=== PATIENT | female | born 1995 | race African-American/Black ===

== ENCOUNTER 2016-05-15 09:24 | Emergency (ER) | payer MEDICAID ==
[~2016-05-15] VITALS: Ht 147.3 cm; Wt 45.4 kg
[2016-05-15 10:44] VITALS: BP 118/78
== END 2016-05-15 11:12 | disposition home or self-care (01) ==
LOC: EDUNIT# 09:24 → ER 10:09
DX: K94.03 Colostomy malfunction (principal); F12.10 Cannabis abuse, uncomplicated; Z89.612 Acquired absence of left leg above knee; Z87.442 Personal history of urinary calculi; Z87.440 Personal history of urinary (tract) infections; Z91.040 Latex allergy status; Z98.890 Other specified postprocedural states

== ENCOUNTER 2017-03-05 14:22 | Emergency (ER) | payer SELFPAY ==
[~2017-03-05] VITALS: Ht 149.9 cm; Wt 36.3 kg
[2017-03-05 14:42] VITALS: BP 101/51
[2017-03-05 18:34] LABS: Basophils # (auto) 0.1 uL; Basophils % (auto) 0.6 % (0.0-2.0); Eosinophils # (auto) 0.1 uL; Eosinophils % (auto) 1.2 % (0.0-7.0); Hematocrit 37.7 % (36.0-46.0); Hemoglobin 12.2 g/dL (12.2-16.2); Lymphocytes # (auto) 1.7 uL; Lymphocytes % (auto) 17.5 % (10.0-50.0); Mean Corpuscular Hemoglobin 30.2 pg (28.0-32.0); Mean Corpuscular Hgb Conc. 32.5 g/dL (32.0-36.0); Mean Platelet Volume 9.1 fL (6.9-10.8); Monocytes # (auto) 0.5 uL; Monocytes % (auto) 5.1 % (0.0-12.0); Neutrophils # (auto) 7.5 uL; Neutrophils % (auto) 75.6 % (37.0-80.0); Platelet Count (auto) 259 10^3/uL (140-450); White Blood Cell 9.9 10^3/uL (4.4-10.8)
[2017-03-05 18:53] LABS: Albumin 4.1 g/dL (3.4-5.0); BUN/Creatinine Ratio 15.3; Bilirubin, Total 0.4 mg/dL (0.2-1.0); Calcium 8.3 mg/dL (8.5-10.1); Potassium 3.2 mmol/L (3.5-5.1); Total Protein 8.7 g/dL (6.4-8.2)
[2017-03-05 19:43] LABS: Amylase 275 U/L (25-115)
== END 2017-03-05 22:42 | disposition home or self-care (01) ==
LOC: ER 14:22
DX: K85.90 Acute pancreatitis without necrosis or infection, unspecified (principal); Z91.040 Latex allergy status; Z87.442 Personal history of urinary calculi; Z87.440 Personal history of urinary (tract) infections
CPT/HCPCS: 36415; 80053; 82150; 83690; 85025

== ENCOUNTER 2017-08-14 00:30 | Emergency (ER) | payer MEDICAID ==
[~2017-08-14] VITALS: Ht 149.9 cm; Wt 36.3 kg
[2017-08-14 01:17] LABS: Basophils # (auto) 0 uL; Basophils % (auto) 0.5 % (0.0-2.0); Eosinophils # (auto) 0.3 uL; Eosinophils % (auto) 3.5 % (0.0-7.0); Hematocrit 33.7 % (36.0-46.0); Lymphocytes # (auto) 2.5 uL; Lymphocytes % (auto) 28.3 % (10.0-50.0); Mean Corpuscular Hemoglobin 30.5 pg (28.0-32.0); Mean Corpuscular Hgb Conc. 32.8 g/dL (32.0-36.0); Monocytes # (auto) 0.5 uL; Monocytes % (auto) 5.6 % (0.0-12.0); Neutrophils # (auto) 5.5 uL; Neutrophils % (auto) 62.1 % (37.0-80.0); Platelet Count (auto) 339 10^3/uL (140-450); Red Blood Cells 3.62 10^6/uL (4.0-5.20); Red Cell Distribution Width 14.3 % (11.8-14.3); White Blood Cell 8.8 10^3/uL (4.4-10.8)
[2017-08-14 01:41] LABS: Albumin 3.2 g/dL (3.4-5.0); BUN/Creatinine Ratio 12.1; Calcium 8.2 mg/dL (8.5-10.1); Potassium 3.7 mmol/L (3.5-5.1)
[2017-08-14 01:43] LABS: Bilirubin, Total 0.2 mg/dL (0.2-1.0); Total Protein 7.1 g/dL (6.4-8.2)
[2017-08-14 01:48] LABS: Alcohol, Urine < 3.0 mg/dL (0-5); Amphetamine Screen, Urine NEGATIVE (NEGATIVE); Barbiturate Scree,Urine NEGATIVE (NEGATIVE); Benzodiazephine Screen, Urine NEGATIVE (NEGATIVE); Cannabinoid Screen, Urine POSITIVE (NEGATIVE); Cocaine Screen, Urine NEGATIVE (NEGATIVE); Opiate Scree,Urine NEGATIVE (NEGATIVE); Phencyclidine Screen, Urine NEGATIVE (NEGATIVE)
[2017-08-14 01:54] LABS: Urine Bacteria MANY /hpf (None Seen); Urine Blood 3+ /uL (Negative); Urine Mucus FEW (None Seen); Urine Specific Gravity 1.016 (1.001-1.035); Urine WBC 163 /hpf (0 - 5)
[2017-08-14 06:11] VITALS: BP 108/63
[2017-08-14] MEDS ORDERED: cefTRIAXone W LIDOCAINE 1 GM IM IM ONE (07:30)
[2017-08-14] MEDS ORDERED: HYDROcodone-ACET 5/325MG TAB PO ONE (08:00)
== END 2017-08-14 08:52 | disposition home or self-care (01) ==
LOC: ER 00:32
DX: N39.0 Urinary tract infection, site not specified (principal); R53.1 Weakness; Z91.040 Latex allergy status; Z87.440 Personal history of urinary (tract) infections
CPT/HCPCS: 36415; 74176; 80053; 80307; 81001; 81025; 82150; 83690; 85025; J0696

== ENCOUNTER 2018-02-19 23:26 | Inpatient (IN) | payer MEDICAID ==
[~2018-02-19] VITALS: Ht 149.9 cm; Wt 54.7 kg
[2018-02-20 00:54] LABS: Basophils # (auto) 0 uL; Basophils % (auto) 0.4 % (0.0-2.0); Eosinophils # (auto) 0.4 uL; Eosinophils % (auto) 4.4 % (0.0-7.0); Hematocrit 34.2 % (36.0-46.0); Hemoglobin 11.2 g/dL (12.2-16.2); Lymphocytes # (auto) 3.9 uL; Mean Corpuscular Hemoglobin 30.7 pg (28.0-32.0); Mean Corpuscular Hgb Conc. 32.8 g/dL (32.0-36.0); Mean Corpuscular Volume 93.7 fL (80.0-100.0); Monocytes # (auto) 0.7 uL; Monocytes % (auto) 6.5 % (0.0-12.0); Neutrophils % (auto) 49.7 % (37.0-80.0); Nucleated Red Blood Cells % 0.1 %; Platelet Count (auto) 206 10^3/uL (140-450); Red Blood Cells 3.65 10^6/uL (4.0-5.20); Red Cell Distribution Width 14.4 % (11.8-14.3); White Blood Cell 10.1 10^3/uL (4.4-10.8)
[2018-02-20 01:07] LABS: Albumin 3.1 g/dL (3.4-5.0); BUN/Creatinine Ratio 14.2; Calcium 8.5 mg/dL (8.5-10.1); Potassium 3.6 mmol/L (3.5-5.1)
[2018-02-20 01:08] LABS: Bilirubin, Total 0.2 mg/dL (0.2-1.0); Total Protein 7.4 g/dL (6.4-8.2)
[2018-02-20 05:32] LABS: Urine Amorphous Crystal FEW /hpf (None Seen); Urine Bacteria FEW /hpf (None Seen); Urine Blood Negative /uL (Negative); Urine Mucus FEW (None Seen); Urine Specific Gravity 1.009 (1.001-1.035); Urine WBC 26 /hpf (0 - 5)
[2018-02-20] MEDS ORDERED: SODIUM CHLORIDE 0.9% 1,000 ML IV ONE (07:47)
[2018-02-20] MEDS ORDERED: MORPHINE SULFATE 4 MG/ML SYR/VIAL IV ONE (08:00)
[2018-02-20] MEDS ORDERED: VANCOMYCIN 1GM/250ML 250 ML IV ONE (08:00)
[2018-02-20] MEDS ORDERED: KETOROLAC TROMETH 30 MG/ML 1ML VIAL IV ONE (08:00)
[2018-02-20] MEDS ORDERED: IOHEXOL 300 MG/ML 100ML BOTTLE IJ ONE (08:03)
[2018-02-20] MEDS: PROMETHAZINE HCL 25 MG/ML 1ML IV PRN ×2 (08:14→18:02)
[2018-02-20 09:17] LABS: Magnesium 2.1 mg/dL (1.6-2.6)
[2018-02-20] MEDS ORDERED: PANTOPRAZOLE 40 MG/10 ML VIAL IV ONE (13:30)
[2018-02-20] MEDS ORDERED: PIPERACILLIN-TAZOB 3.375GM 100 ML IV ONE (13:30)
[2018-02-20] MEDS ORDERED: LORazepam 2MG/ML-1ML VIAL IV PRN (13:30)
[2018-02-20] MEDS ORDERED: MORPHINE SULFATE 4 MG/ML SYR/VIAL IV PRN (13:30)
[2018-02-20] MEDS ORDERED: NITROGLYCERIN 0.4 MG SL TAB SL PRN (13:30)
[2018-02-20] MEDS: MORPHINE SULFATE 4 MG/ML SYR/VIAL IV PRN ×4 (13:54→22:12)
[2018-02-20] MEDS: SODIUM CHLORIDE 0.9% 1,000 ML IV SCH ×2 (14:26→22:52)
[2018-02-20 16:56] VITALS: BP 85/44
[2018-02-20 18:43] VITALS: BP 85/44
[2018-02-20] MEDS: PIPERACILLIN-TAZOB 3.375GM 100 ML IV SCH (19:41)
[2018-02-20] MEDS ORDERED: DIVA250T51 PO (20:04)
[2018-02-20] MEDS ORDERED: LAMO25TA2 PO (20:04)
[2018-02-20] MEDS ORDERED: QUET25TA37 PO (20:04)
[2018-02-20 22:02] VITALS: BP 131/69
[2018-02-20] MEDS: lamoTRIgine 25 MG TAB PO SCH (22:10)
[2018-02-20] MEDS: QUEtiapine FUMARATE 25 MG TAB PO SCH (22:10)
[2018-02-21] MEDS: PIPERACILLIN-TAZOB 3.375GM 100 ML IV SCH ×2 (00:08→05:18)
[2018-02-21] MEDS: MORPHINE SULFATE 4 MG/ML SYR/VIAL IV PRN ×2 (03:53→10:01)
[2018-02-21 05:15] VITALS: BP 85/45
[2018-02-21 08:01] LABS: Basophils # (auto) 0.1 uL; Basophils % (auto) 0.6 % (0.0-2.0); Eosinophils # (auto) 0.5 uL; Eosinophils % (auto) 5.7 % (0.0-7.0); Hematocrit 33.4 % (36.0-46.0); Hemoglobin 10.8 g/dL (12.2-16.2); Lymphocytes # (auto) 3.8 uL; Lymphocytes % (auto) 42.6 % (10.0-50.0); Mean Corpuscular Hemoglobin 30.8 pg (28.0-32.0); Mean Corpuscular Hgb Conc. 32.4 g/dL (32.0-36.0); Monocytes # (auto) 0.5 uL; Monocytes % (auto) 5.2 % (0.0-12.0); Neutrophils # (auto) 4.1 uL; Neutrophils % (auto) 45.9 % (37.0-80.0); Nucleated Red Blood Cells % 0.1 %; Platelet Count (auto) 165 10^3/uL (140-450); Red Blood Cells 3.51 10^6/uL (4.0-5.20); Red Cell Distribution Width 14.7 % (11.8-14.3); White Blood Cell 8.9 10^3/uL (4.4-10.8)
[2018-02-21 08:16] LABS: Chloride 119 mmol/L (98-107); Potassium 3.7 mmol/L (3.5-5.1); Sodium 143 mmol/L (136-145)
[2018-02-21 08:22] LABS: Alanine Aminotransferase 12 U/L (13-56); Albumin 2.4 g/dL (3.4-5.0); Anion Gap 10 (5-15); Aspartate Aminotransferase 11 U/L (15-37); BUN/Creatinine Ratio 8.9; Blood Urea Nitrogen 11 mg/dL (7-18); Carbon Dioxide 14 mmol/L (21-32); GFR African American 70 mL/min; GFR Non-African American 58 mL/min; Glucose 74 mg/dL (74-106)
[2018-02-21 08:25] LABS: Alkaline Phosphatase 62 U/L (45-117); Bilirubin, Total 0.2 mg/dL (0.2-1.0); Total Protein 6.2 g/dL (6.4-8.2)
[2018-02-21] MEDS ORDERED: GASTROGRAFIN 120 ML SOL ONE (08:46)
[2018-02-21 09:00] VITALS: BP 93/56
[2018-02-21] MEDS: PANTOPRAZOLE 40 MG/10 ML VIAL IV SCH (09:47)
[2018-02-21] MEDS: lamoTRIgine 25 MG TAB PO SCH ×2 (09:47→20:24)
[2018-02-21] MEDS: SODIUM CHLORIDE 0.9% 1,000 ML IV SCH ×2 (10:02→20:24)
[2018-02-21] MEDS ORDERED: HYDROcodone-ACET 5/325MG TAB PO PRN (12:00)
[2018-02-21] MEDS ORDERED: ALBUMIN 25% 100 ML IV ONE (12:45)
[2018-02-21] MEDS: AMPICILLIN INJ 500 MG in SODIUM CHL 0.9% 50 ML IV SCH ×3 (12:50→23:22)
[2018-02-21 13:00] VITALS: BP 92/48
[2018-02-21] MEDS: HYDROmorphone HCL 2 MG/ML VL IV PRN ×4 (13:17→23:29)
[2018-02-21 17:00] VITALS: BP 121/74
[2018-02-21 19:32] LABS: Hematocrit 38.5 % (36.0-46.0); Hemoglobin 12.5 g/dL (12.2-16.2)
[2018-02-21] MEDS: QUEtiapine FUMARATE 25 MG TAB PO SCH (20:24)
[2018-02-21 22:00] VITALS: BP 103/50
[2018-02-22 01:10] LABS: Hematocrit 32.9 % (36.0-46.0); Hemoglobin 10.7 g/dL (12.2-16.2)
[2018-02-22 05:06] VITALS: BP 95/66
[2018-02-22] MEDS: HYDROmorphone HCL 2 MG/ML VL IV PRN ×6 (05:18→21:39)
[2018-02-22] MEDS: AMPICILLIN INJ 500 MG in SODIUM CHL 0.9% 50 ML IV SCH ×3 (05:18→17:15)
[2018-02-22] MEDS: SODIUM CHLORIDE 0.9% 1,000 ML IV SCH ×2 (05:18→12:11)
[2018-02-22 06:36] LABS: BUN/Creatinine Ratio 6.7; Potassium 4.2 mmol/L (3.5-5.1)
[2018-02-22 09:00] VITALS: BP 101/56
[2018-02-22] MEDS: PANTOPRAZOLE 40 MG/10 ML VIAL IV SCH (10:11)
[2018-02-22] MEDS: lamoTRIgine 25 MG TAB PO SCH ×2 (10:11→21:40)
[2018-02-22 13:00] VITALS: BP 98/65
[2018-02-22 16:34] VITALS: BP 104/55
[2018-02-22] MEDS: ONDANSETRON HCL 4 MG/2 ML VIAL IV PRN (18:43)
[2018-02-22] MEDS: QUEtiapine FUMARATE 25 MG TAB PO SCH (21:39)
[2018-02-22 22:00] VITALS: BP 108/67
[2018-02-23] MEDS: SODIUM CHLORIDE 0.9% 1,000 ML IV SCH ×2 (00:19→11:26)
[2018-02-23] MEDS: AMPICILLIN INJ 500 MG in SODIUM CHL 0.9% 50 ML IV SCH ×4 (00:19→18:19)
[2018-02-23] MEDS: HYDROmorphone HCL 2 MG/ML VL IV PRN ×6 (04:24→21:26)
[2018-02-23 05:00] VITALS: BP 99/52
[2018-02-23 09:08] VITALS: BP 96/45
[2018-02-23] MEDS: PANTOPRAZOLE 40 MG/10 ML VIAL IV SCH (09:51)
[2018-02-23] MEDS: lamoTRIgine 25 MG TAB PO SCH ×2 (09:52→21:31)
[2018-02-23 12:30] VITALS: BP 96/59
[2018-02-23 16:45] VITALS: BP 107/52
[2018-02-23] MEDS: QUEtiapine FUMARATE 25 MG TAB PO SCH (21:31)
[2018-02-23 22:00] VITALS: BP 93/52
[2018-02-24] MEDS: AMPICILLIN INJ 500 MG in SODIUM CHL 0.9% 50 ML IV SCH ×4 (00:23→17:56)
[2018-02-24] MEDS: HYDROmorphone HCL 2 MG/ML VL IV PRN ×8 (00:26→22:54)
[2018-02-24] MEDS: SODIUM CHLORIDE 0.9% 1,000 ML IV SCH ×3 (00:36→17:26)
[2018-02-24 05:00] VITALS: BP 100/51
[2018-02-24 08:30] VITALS: BP 143/49
[2018-02-24] MEDS: PANTOPRAZOLE 40 MG/10 ML VIAL IV SCH (09:49)
[2018-02-24] MEDS: lamoTRIgine 25 MG TAB PO SCH ×2 (09:49→22:04)
[2018-02-24] MEDS: ONDANSETRON HCL 4 MG/2 ML VIAL IV PRN (12:27)
[2018-02-24 13:02] VITALS: BP 125/80
[2018-02-24 17:04] VITALS: BP 129/73
[2018-02-24 22:00] VITALS: BP 110/55
[2018-02-24] MEDS: QUEtiapine FUMARATE 25 MG TAB PO SCH (22:04)
[2018-02-25] MEDS: AMPICILLIN INJ 500 MG in SODIUM CHL 0.9% 50 ML IV SCH ×4 (00:27→19:49)
[2018-02-25] MEDS: HYDROmorphone HCL 2 MG/ML VL IV PRN ×8 (01:53→23:37)
[2018-02-25 05:00] VITALS: BP 97/44
[2018-02-25] MEDS: SODIUM CHLORIDE 0.9% 1,000 ML IV SCH ×2 (06:10→14:10)
[2018-02-25 09:00] VITALS: BP 99/47
[2018-02-25] MEDS ORDERED: HYDROmorphone HCL 2 MG/ML VL IV PRN (09:45)
[2018-02-25] MEDS: lamoTRIgine 25 MG TAB PO SCH ×2 (10:15→22:11)
[2018-02-25] MEDS: PANTOPRAZOLE 40 MG/10 ML VIAL IV SCH (10:15)
[2018-02-25] MEDS ORDERED: LAMO25CH17 PO (10:45)
[2018-02-25] MEDS ORDERED: QUET25TA46 PO (10:45)
[2018-02-25] MEDS ORDERED: DIVA1TAB58 PO (10:45)
[2018-02-25 10:58] LABS: BUN/Creatinine Ratio 5.4; Calcium 9.1 mg/dL (8.5-10.1)
[2018-02-25 13:00] VITALS: BP 106/51
[2018-02-25 17:00] VITALS: BP 104/58
[2018-02-25 21:56] VITALS: BP 117/59
[2018-02-25] MEDS: QUEtiapine FUMARATE 25 MG TAB PO SCH (22:11)
[2018-02-26] MEDS: AMPICILLIN INJ 500 MG in SODIUM CHL 0.9% 50 ML IV SCH ×3 (00:27→11:32)
[2018-02-26] MEDS: SODIUM CHLORIDE 0.9% 1,000 ML IV SCH ×2 (00:27→09:26)
[2018-02-26] MEDS: HYDROmorphone HCL 2 MG/ML VL IV PRN ×3 (04:43→11:33)
[2018-02-26 05:00] VITALS: BP 98/50
[2018-02-26 09:00] VITALS: BP 117/68
[2018-02-26] MEDS ORDERED: AMPI500C8 PO (09:10)
[2018-02-26] MEDS: lamoTRIgine 25 MG TAB PO SCH (09:40)
[2018-02-26] MEDS: PANTOPRAZOLE 40 MG/10 ML VIAL IV SCH (09:40)
== END 2018-02-26 15:00 | disposition short-term general hospital (02) | DRG 465 ==
LOC: EDBD 23:26 → ER 23:29 → TELE 23:30 → TELE-WESTW 02-20 16:48 → WEST WING 02-21 23:58
PROVIDERS: ADMIT Internal Medicine; ATTEND Internal Medicine
DX: N21.0 Calculus in bladder (principal); Q60.0 Renal agenesis, unilateral; E44.0 Moderate protein-calorie malnutrition; K43.6 Other and unspecified ventral hernia with obstruction, without gangrene; N18.3 Chronic kidney disease, stage 3 (moderate); N39.0 Urinary tract infection, site not specified; Z87.442 Personal history of urinary calculi; F31.9 Bipolar disorder, unspecified; F17.210 Nicotine dependence, cigarettes, uncomplicated; N20.0 Calculus of kidney; B95.2 Enterococcus as the cause of diseases classified elsewhere; Z98.1 Arthrodesis status; Z91.040 Latex allergy status; Z81.8 Family history of other mental and behavioral disorders; Z87.440 Personal history of urinary (tract) infections; Z93.2 Ileostomy status; Z68.24 Body mass index [BMI] 24.0-24.9, adult
CPT/HCPCS: 36415; 71045; 74177; 74250; 80048; 80053; 81001; 81025; 82150; 83690; 83735; 84443; 85014; 85018; 85025; 87081; 87086; 87088; 87186; 96361; 96365; 96367; 96375; C9113; J1885; J2405; J2543; P9047

== ENCOUNTER 2018-08-04 22:59 | Emergency (ER) | payer MEDICAID ==
[~2018-08-04] VITALS: Ht 149.9 cm; Wt 42.2 kg
[2018-08-04 23:00] VITALS: BP 125/90
[2018-08-05 01:58] LABS: Basophils # (auto) 0.1 uL; Eosinophils # (auto) 0.3 uL; Eosinophils % (auto) 2.9 % (0.0-7.0); Hematocrit 37.2 % (36.0-46.0); Hemoglobin 12.4 g/dL (12.2-16.2); Lymphocytes # (auto) 3.1 uL; Lymphocytes % (auto) 31.6 % (10.0-50.0); Mean Corpuscular Hgb Conc. 33.3 g/dL (32.0-36.0); Mean Corpuscular Volume 90.3 fL (80.0-100.0); Monocytes # (auto) 0.7 uL; Neutrophils # (auto) 5.7 uL; Neutrophils % (auto) 57.5 % (37.0-80.0); Nucleated Red Blood Cells % 0.1 %; Platelet Count (auto) 221 10^3/uL (140-450); Red Blood Cells 4.12 10^6/uL (4.0-5.20); Red Cell Distribution Width 14.9 % (11.8-14.3); White Blood Cell 9.9 10^3/uL (4.4-10.8)
[2018-08-05 02:11] LABS: Albumin 3.7 g/dL (3.4-5.0); Calcium 8.4 mg/dL (8.5-10.1); Potassium 3.4 mmol/L (3.5-5.1)
[2018-08-05 02:16] LABS: BUN/Creatinine Ratio 10.3; Bilirubin, Total 0.1 mg/dL (0.2-1.0); Total Protein 8.5 g/dL (6.4-8.2)
[2018-08-05] MEDS ORDERED: HYDROcodone-ACET 10/325MG TAB PO ONE (08:00)
[2018-08-05] MEDS ORDERED: POTASSIUM CHL 10% (20 MEQ/15ML) 15ml ORAL SOLN PO ONE (08:00)
== END 2018-08-05 09:01 | disposition home or self-care (01) ==
LOC: ER 23:03
DX: N20.0 Calculus of kidney (principal); F32.9 Major depressive disorder, single episode, unspecified; Z87.442 Personal history of urinary calculi; Z87.440 Personal history of urinary (tract) infections; Z91.040 Latex allergy status; Z93.2 Ileostomy status
CPT/HCPCS: 36415; 74176; 80053; 85025

== ENCOUNTER 2018-12-18 20:57 | Inpatient (IN) | payer MEDICAID ==
[~2018-12-18] VITALS: Ht 149.9 cm; Wt 39.0 kg
[2018-12-18 22:25] LABS: Basophils # (auto) 0.1 uL; Basophils % (auto) 0.5 % (0.0-2.0); Eosinophils # (auto) 0.1 uL; Eosinophils % (auto) 1.1 % (0.0-7.0); Hematocrit 33.5 % (36.0-46.0); Lymphocytes # (auto) 2.3 uL; Lymphocytes % (auto) 20.2 % (10.0-50.0); Mean Corpuscular Hemoglobin 30.2 pg (28.0-32.0); Mean Corpuscular Hgb Conc. 32.8 g/dL (32.0-36.0); Mean Corpuscular Volume 92.1 fL (80.0-100.0); Monocytes # (auto) 0.7 uL; Neutrophils % (auto) 72.2 % (37.0-80.0); Nucleated Red Blood Cells % 0.1 %; Platelet Count (auto) 271 10^3/uL (140-450); Red Blood Cells 3.64 10^6/uL (4.0-5.20); Red Cell Distribution Width 16.7 % (11.8-14.3); White Blood Cell 11.1 10^3/uL (4.4-10.8)
[2018-12-18 22:47] LABS: Albumin 3.7 g/dL (3.4-5.0); Calcium 7.9 mg/dL (8.5-10.1); Magnesium 2.3 mg/dL (1.6-2.6)
[2018-12-18 22:49] LABS: BUN/Creatinine Ratio 10.1
[2018-12-18 22:51] LABS: INR 0.99 (0.9-1.15); Partial Thromboplastin Time 24.5 sec (23.64-32.05)
[2018-12-18 22:52] LABS: Bilirubin, Total 0.3 mg/dL (0.2-1.0); Total Protein 7.4 g/dL (6.4-8.2)
[2018-12-18] MEDS ORDERED: POTASSIUM CHL 20 Meq TABLET PO ONE (23:15)
[2018-12-19] MEDS ORDERED: POTASSIUM EFFERVESENT TAB 25 MEQ PO ONE (03:00)
[2018-12-19] MEDS ORDERED: MORPHINE SULFATE 4 MG/ML SYR/VIAL IV ONE (04:15)
[2018-12-19] MEDS ORDERED: SODIUM CHLORIDE 0.9% 1,000 ML IV ONE (04:15)
[2018-12-19] MEDS ORDERED: ONDANSETRON HCL 4 MG/2 ML VIAL IV ONE (04:15)
[2018-12-19 07:08] LABS: Urine Amorphous Crystal FEW /hpf (None Seen); Urine Bacteria NONE SEEN /hpf (None Seen); Urine Blood TRACE /uL (Negative); Urine WBC 81 /hpf (0 - 5)
[2018-12-19 07:14] LABS: Urine Specific Gravity 1.005 (1.001-1.035)
[2018-12-19 07:38] LABS: Alcohol, Urine < 3.0 mg/dL (0-5); Amphetamine Screen, Urine NEGATIVE (NEGATIVE); Barbiturate Scree,Urine NEGATIVE (NEGATIVE); Benzodiazephine Screen, Urine NEGATIVE (NEGATIVE); Cannabinoid Screen, Urine POSITIVE (NEGATIVE); Cocaine Screen, Urine NEGATIVE (NEGATIVE); Opiate Scree,Urine NEGATIVE (NEGATIVE); Phencyclidine Screen, Urine NEGATIVE (NEGATIVE)
[2018-12-19] MEDS ORDERED: ACETAMINOPHEN 500 MG TAB PO PRN (08:45)
[2018-12-19] MEDS ORDERED: HYDROmorphone HCL 2 MG/ML VL IV PRN (08:45)
[2018-12-19] MEDS ORDERED: HYDROcodone-ACET 5/325MG TAB PO PRN (08:45)
[2018-12-19] MEDS: cefTRIAXone 1GM/50ML D5W 50 ML IV SCH (09:27)
[2018-12-19] MEDS: SOD CHL 0.45% WITH 20MEQ KCL 1,000 ML IV SCH ×2 (09:28→23:41)
[2018-12-19] MEDS: ONDANSETRON HCL 4 MG/2 ML VIAL IV PRN ×2 (09:37→20:08)
[2018-12-19] MEDS: POTASSIUM CHL 20MEQ/100ML 100 ML IV SCH (10:00)
[2018-12-19] MEDS: FAMOTIDINE 20 MG TAB PO SCH (10:00)
[2018-12-19 13:00] VITALS: BP 111/59
[2018-12-19 17:00] VITALS: BP 105/79
[2018-12-19] MEDS: MEPERIDINE HCL (25 MG/ML) 1ML VIAL IV PRN (17:16)
[2018-12-19 22:00] VITALS: BP 114/77
[2018-12-20] MEDS: MEPERIDINE HCL (25 MG/ML) 1ML VIAL IV PRN ×4 (02:57→21:06)
[2018-12-20] MEDS: ONDANSETRON HCL 4 MG/2 ML VIAL IV PRN ×2 (04:26→17:09)
[2018-12-20 05:23] VITALS: BP 108/61
[2018-12-20 08:00] VITALS: BP 99/69
[2018-12-20] MEDS: cefTRIAXone 1GM/50ML D5W 50 ML IV SCH (08:38)
[2018-12-20 09:23] LABS: Basophils # (auto) 0 uL; Basophils % (auto) 0.6 % (0.0-2.0); Eosinophils # (auto) 0.2 uL; Eosinophils % (auto) 3.1 % (0.0-7.0); Hemoglobin 10.9 g/dL (12.2-16.2); Lymphocytes % (auto) 30.4 % (10.0-50.0); Mean Corpuscular Hemoglobin 30.7 pg (28.0-32.0); Mean Corpuscular Volume 93.1 fL (80.0-100.0); Monocytes # (auto) 0.4 uL; Monocytes % (auto) 5.5 % (0.0-12.0); Neutrophils # (auto) 3.9 uL; Neutrophils % (auto) 60.4 % (37.0-80.0); Nucleated Red Blood Cells % 0.1 %; Platelet Count (auto) 252 10^3/uL (140-450); Red Blood Cells 3.55 10^6/uL (4.0-5.20); Red Cell Distribution Width 17.2 % (11.8-14.3); White Blood Cell 6.5 10^3/uL (4.4-10.8)
[2018-12-20 09:43] LABS: BUN/Creatinine Ratio 5.8; Calcium 7.8 mg/dL (8.5-10.1); Potassium 3.6 mmol/L (3.5-5.1)
[2018-12-20] MEDS: FAMOTIDINE 20 MG TAB PO SCH (10:23)
[2018-12-20] MEDS: SODIUM BICARBONATE 50ML VIAL 50 ML in D5W/SOD CHL 0.45% 1,000 ML IV SCH ×2 (10:57→23:52)
[2018-12-20 12:00] VITALS: BP 121/62
[2018-12-20] MEDS ORDERED: MEPERIDINE HCL (50 MG/ML) 1 ML VIAL ONE (13:20)
[2018-12-20] MEDS ORDERED: MEPERIDINE HCL (50 MG/ML) 1 ML VIAL IM ONE (13:30)
[2018-12-20] MEDS ORDERED: OXYCODONE W/ ACETAMINOPHEN 5/325MG TABLET PO PRN (13:30)
[2018-12-20 17:00] VITALS: BP 128/93
[2018-12-20 22:00] VITALS: BP 112/60
[2018-12-21] MEDS: SODIUM BICARBONATE 50ML VIAL 50 ML in D5W/SOD CHL 0.45% 1,000 ML IV SCH (03:00)
[2018-12-21] MEDS: MEPERIDINE HCL (25 MG/ML) 1ML VIAL IV PRN ×4 (03:00→21:36)
[2018-12-21 04:31] VITALS: BP 93/49
[2018-12-21 06:31] LABS: Basophils # (auto) 0 uL; Basophils % (auto) 0.6 % (0.0-2.0); Eosinophils # (auto) 0.2 uL; Eosinophils % (auto) 2.8 % (0.0-7.0); Hematocrit 30.7 % (36.0-46.0); Hemoglobin 10.3 g/dL (12.2-16.2); Lymphocytes # (auto) 2.4 uL; Lymphocytes % (auto) 32.8 % (10.0-50.0); Mean Corpuscular Hemoglobin 31.3 pg (28.0-32.0); Mean Corpuscular Hgb Conc. 33.7 g/dL (32.0-36.0); Mean Corpuscular Volume 93.1 fL (80.0-100.0); Monocytes # (auto) 0.4 uL; Monocytes % (auto) 5.8 % (0.0-12.0); Neutrophils # (auto) 4.2 uL; Nucleated Red Blood Cells % 0.2 %; Platelet Count (auto) 215 10^3/uL (140-450); White Blood Cell 7.2 10^3/uL (4.4-10.8)
[2018-12-21 06:47] LABS: BUN/Creatinine Ratio 4.3; Calcium 7.6 mg/dL (8.5-10.1); Potassium 3.3 mmol/L (3.5-5.1)
[2018-12-21] MEDS: ONDANSETRON HCL 4 MG/2 ML VIAL IV PRN ×2 (07:28→18:15)
[2018-12-21 09:00] VITALS: BP 103/59
[2018-12-21] MEDS: FAMOTIDINE 20 MG TAB PO SCH (09:06)
[2018-12-21] MEDS: cefTRIAXone 1GM/50ML D5W 50 ML IV SCH (09:06)
[2018-12-21 13:00] VITALS: BP 96/56
[2018-12-21] MEDS ORDERED: HYDROcodone-ACET 5/325MG TAB PO PRN (14:45)
[2018-12-21] MEDS ORDERED: D5W/SOD CHL 0.45%/KCL 40MEQ 1,000 ML IV SCH (14:45)
[2018-12-21] MEDS ORDERED: POTASSIUM EFFERVESENT TAB 25 MEQ GT ONE (14:45)
[2018-12-21 17:06] VITALS: BP 106/59
[2018-12-21 22:00] VITALS: BP 100/56
[2018-12-21] MEDS ORDERED: SODIUM BICARBONATE 650 MG TAB PO SCH (22:00)
[2018-12-22] MEDS ORDERED: POTASSIUM CHL 20 Meq TABLET PO SCH (10:00)
== END 2018-12-22 00:20 | disposition short-term general hospital (02) | DRG 463 ==
LOC: ER 20:59 → OVERFLOW 21:00 → EAST 12-19 10:50
PROVIDERS: ADMIT Nurse Practitioner Acute Care; ATTEND Internal Medicine
DX: N39.0 Urinary tract infection, site not specified (principal); E87.2 Acidosis; E87.5 Hyperkalemia; M41.20 Other idiopathic scoliosis, site unspecified; K94.09 Other complications of colostomy; M54.5 Low back pain; F12.10 Cannabis abuse, uncomplicated; G89.29 Other chronic pain; E87.6 Hypokalemia; N32.9 Bladder disorder, unspecified; F41.9 Anxiety disorder, unspecified; M41.9 Scoliosis, unspecified; Z76.5 Malingerer [conscious simulation]; Z81.8 Family history of other mental and behavioral disorders; Z87.440 Personal history of urinary (tract) infections; Z87.442 Personal history of urinary calculi; Z79.899 Other long term (current) drug therapy; Z80.9 Family history of malignant neoplasm, unspecified; Z86.14 Personal history of Methicillin resistant Staphylococcus aureus infection
CPT/HCPCS: 36415; 36600; 80048; 80053; 80307; 81001; 82150; 82805; 83605; 83690; 83735; 84132; 84702; 85025; 85610; 85730; 87040; 87081; 87086; 96361; 96365; 96375; G0378; J0696; J2405; J3480

== ENCOUNTER 2019-02-09 09:40 | Emergency (ER) | payer MEDICAID ==
[~2019-02-09] VITALS: Ht 149.9 cm; Wt 40.8 kg
[2019-02-09 10:05] VITALS: BP 116/56
[2019-02-09 11:13] LABS: Urine Amorphous Crystal MANY /hpf (None Seen); Urine Bacteria MOD /hpf (None Seen); Urine Mucus MANY (None Seen); Urine WBC 2778 /hpf (0 - 5)
[2019-02-09 11:16] LABS: Urine Specific Gravity 1.012 (1.001-1.035)
== END 2019-02-09 11:03 | disposition left against medical advice (07) ==
LOC: ER 09:40
DX: R10.9 Unspecified abdominal pain (principal); R11.2 Nausea with vomiting, unspecified; R19.7 Diarrhea, unspecified; Z53.21 Procedure and treatment not carried out due to patient leaving prior to being seen by health care provider
CPT/HCPCS: 81001

== ENCOUNTER 2019-02-10 19:33 | Inpatient (IN) | payer MEDICAID ==
[~2019-02-10] VITALS: Ht 144.8 cm; Wt 42.0 kg
[2019-02-10 20:39] LABS: Basophils # (auto) 0.1 uL; Basophils % (auto) 0.9 % (0.0-2.0); Eosinophils # (auto) 0.3 uL; Eosinophils % (auto) 3.8 % (0.0-7.0); Hematocrit 28.9 % (36.0-46.0); Hemoglobin 9.7 g/dL (12.2-16.2); Lymphocytes # (auto) 2.1 uL; Lymphocytes % (auto) 23.3 % (10.0-50.0); Mean Corpuscular Hemoglobin 31.1 pg (28.0-32.0); Mean Corpuscular Hgb Conc. 33.8 g/dL (32.0-36.0); Mean Corpuscular Volume 92.1 fL (80.0-100.0); Monocytes # (auto) 0.5 uL; Monocytes % (auto) 5.3 % (0.0-12.0); Neutrophils # (auto) 6.1 uL; Neutrophils % (auto) 66.7 % (37.0-80.0); Platelet Count (auto) 279 10^3/uL (140-450); Red Blood Cells 3.13 10^6/uL (4.0-5.20); Red Cell Distribution Width 14.3 % (11.8-14.3); White Blood Cell 9.1 10^3/uL (4.4-10.8)
[2019-02-10 20:52] LABS: Albumin 3.5 g/dL (3.4-5.0); Calcium 8.1 mg/dL (8.5-10.1); Potassium 3.3 mmol/L (3.5-5.1)
[2019-02-10 20:55] LABS: BUN/Creatinine Ratio 11.4; Bilirubin, Total 0.2 mg/dL (0.2-1.0); Total Protein 7.3 g/dL (6.4-8.2)
[2019-02-10] MEDS ORDERED: ONDANSETRON HCL 4 MG/2 ML VIAL IV ONE (21:00)
[2019-02-10] MEDS ORDERED: SODIUM CHLORIDE 0.9% 1,000 ML IV ONE (21:00)
[2019-02-10] MEDS ORDERED: NALBUPHINE HCL 10 MG/1ml INJECTION IV ONE (22:15)
[2019-02-10] MEDS ORDERED: POTASSIUM CHL 20 Meq TABLET PO ONE (22:30)
[2019-02-10 23:42] LABS: Urine Amorphous Crystal MOD /hpf (None Seen); Urine Bacteria MANY /hpf (None Seen); Urine Blood 2+ /uL (Negative); Urine Hyaline Cast MANY /lpf (0 - 2); Urine WBC 81 /hpf (0 - 5); Urine WBC Clumps PRESENT /hpf (None Seen)
[2019-02-10 23:48] LABS: Amphetamine Screen, Urine NEGATIVE (NEGATIVE); Barbiturate Scree,Urine NEGATIVE (NEGATIVE); Benzodiazephine Screen, Urine NEGATIVE (NEGATIVE); Cannabinoid Screen, Urine POSITIVE (NEGATIVE); Cocaine Screen, Urine NEGATIVE (NEGATIVE); Opiate Scree,Urine NEGATIVE (NEGATIVE); Phencyclidine Screen, Urine NEGATIVE (NEGATIVE)
[2019-02-11] VITALS (7 sets, daily range): BP systolic 99–118; BP diastolic 47–79
[2019-02-11] MEDS ORDERED: ACETAMINOPHEN 325 MG TAB PO PRN
[2019-02-11] MEDS ORDERED: SODIUM CHLORIDE 0.9% 1,000 ML IV SCH
[2019-02-11] MEDS ORDERED: SODIUM CHLORIDE 0.9% 500 ML IV ONE
[2019-02-11] MEDS ORDERED: HYDROcodone-ACET 5/325MG TAB PO PRN
[2019-02-11] MEDS ORDERED: AZTREONAM 1GM INJ 1 GM in D5W 5% 50 ML IV ONE (01:00)
--- NOTE | 2019-02-11 01:55 | NUR ---
MS admit from ER THEODORE DIAZ admitted to tele/MS after SBAR received. Patient oriented to Toribio lindsay RN, unit, room, bed, and unit policies regarding patient care and visiting hours. Patient weighed by bedscale and encouraged to call if they need something. All questions and concerns addressed, patient verbalized understanding.
[2019-02-11] MEDS ORDERED: AZTREONAM 1 GM INJ VIAL ONE (02:15)
[2019-02-11] MEDS: MORPHINE SULFATE 4 MG/ML SYR/VIAL IV PRN ×2 (02:53→07:58)
[2019-02-11] MEDS ORDERED: QUET50TA PO (04:46)
[2019-02-11] MEDS ORDERED: TRAZ50TA2 PO (04:46)
[2019-02-11] MEDS ORDERED: LAMO25CH17 PO (04:46)
[2019-02-11] MEDS ORDERED: AZTREONAM 1GM INJ 1 GM in D5W 5% 50 ML IV SCH ×2 (06:00→11:00)
[2019-02-11 06:52] LABS: BUN/Creatinine Ratio 14.6; Calcium 7.7 mg/dL (8.5-10.1); Potassium 3.6 mmol/L (3.5-5.1)
--- NOTE | 2019-02-11 07:15 | NUR ---
Open Shift Note Received report on patient, awake and sitting up in bed. Patient complaining of left upper quadrant pain 9/. Discussed pain management as well as POC with patient. Also provided patient with heat packs for abdomen. Bed in lowest locked position, side rails up x2 and call light within reach. Will continue to monitor.
[2019-02-11] MEDS: PANTOPRAZOLE 40 MG TAB PO SCH ×2 (09:20→21:39)
[2019-02-11] MEDS: ONDANSETRON HCL 4 MG/2 ML VIAL IV PRN (10:52)
--- NOTE | 2019-02-11 11:36 | NUR ---
Paged Dr Mcpherson Paged Dr Mcpherson for pain medication. Patient states Tanya does not work for her. Awaiting call back.
--- NOTE | 2019-02-11 12:13 | NUR ---
Stefano At Bedside Stefano from urology at patient bedside.
[2019-02-11] MEDS: HYDROmorphone HCL 2 MG/ML VL IV PRN ×2 (12:33→18:19)
[2019-02-11] MEDS ORDERED: SODIUM BICARBONATE 50ML VIAL 150 ML in D5W 5% 1,000 ML IV ONE (13:30)
--- NOTE | 2019-02-11 14:24 | NUR ---
Sent Stool Sent stool sample for culture/cdiff.
[2019-02-11] MEDS: lamoTRIgine 25 MG TAB PO SCH ×2 (15:05→21:39)
[2019-02-11] MEDS: SUCRALFATE 1 GM/10 ML ORAL SUSP PO SCH ×2 (17:44→21:39)
[2019-02-11] MEDS: POTASSIUM CHL 20 Meq TABLET PO SCH ×2 (17:46→19:27)
[2019-02-11] MEDS ORDERED: cefTRIAXone 1GM/50ML D5W 50 ML IV SCH (18:00)
--- NOTE | 2019-02-11 18:45 | NUR ---
Pharmacy To Bring Up Bicarb Spoke with pharmacy twice who stated they will bring up the patient's bicarb.
--- NOTE | 2019-02-11 18:51 | NUR ---
Closing Note Patient sitting up in bed, shows no signs of SOB or distress at this time. Friend sitting at bedside. Bed in lowest locked position, side rails up x2 and call light within reach.
--- NOTE | 2019-02-11 19:00 | NUR ---
Opening Shift Note Assumed care of patient, awake and alert. No S/S of distress/SOB or pain. Instructed on POC and to call for assist PRN, will continue to monitor for changes Q1hr and PRN.
[2019-02-11] MEDS: traZODone HCL 50 MG TAB PO SCH (21:39)
[2019-02-11] MEDS: QUEtiapine FUMARATE 25 MG TAB PO SCH (21:39)
[2019-02-12] MEDS: HYDROmorphone HCL 2 MG/ML VL IV PRN ×5 (05:34→23:44)
[2019-02-12 06:03] VITALS: BP 92/47
[2019-02-12] MEDS: SUCRALFATE 1 GM/10 ML ORAL SUSP PO SCH ×4 (06:31→22:04)
--- NOTE | 2019-02-12 07:25 | NUR ---
Open Shift Note Received report on patient, awake and sitting up in bed. Patient upset, stating "I'm tired of being disrespected up in this place". Attempted to use relaxation techniques with patient and discuss patient's concerns but patient states she wants to speak with the charge nurse. Patient informed that the charge nurse is aware of her request to speak with her, patient states "I'm about to walk out of this place". Reminded patient of her right leave AMA. Bed in lowest locked position, side rails up x2 and call light within reach. Will continue to monitor.
[2019-02-12 07:45] LABS: Basophils # (auto) 0 uL; Basophils % (auto) 0.4 % (0.0-2.0); Eosinophils # (auto) 0.2 uL; Eosinophils % (auto) 4.1 % (0.0-7.0); Hemoglobin 8.8 g/dL (12.2-16.2); Lymphocytes # (auto) 2.6 uL; Lymphocytes % (auto) 45.1 % (10.0-50.0); Mean Corpuscular Hemoglobin 31.3 pg (28.0-32.0); Mean Corpuscular Hgb Conc. 33.8 g/dL (32.0-36.0); Mean Corpuscular Volume 92.6 fL (80.0-100.0); Monocytes # (auto) 0.4 uL; Monocytes % (auto) 6.5 % (0.0-12.0); Neutrophils # (auto) 2.5 uL; Neutrophils % (auto) 43.9 % (37.0-80.0); Platelet Count (auto) 233 10^3/uL (140-450); Red Blood Cells 2.81 10^6/uL (4.0-5.20); Red Cell Distribution Width 14.3 % (11.8-14.3); White Blood Cell 5.8 10^3/uL (4.4-10.8)
[2019-02-12 08:06] LABS: BUN/Creatinine Ratio 8.6; Calcium 7.3 mg/dL (8.5-10.1); Potassium 3.4 mmol/L (3.5-5.1)
--- NOTE | 2019-02-12 08:20 | NUR ---
C-Diff Patient positive for C-diff per report from [place], spoke with Shirley. Charge nurse Tita made aware.
[2019-02-12 09:35] VITALS: BP 90/57
--- NOTE | 2019-02-12 09:35 | NUR ---
Behavioral Occurrence Patient states she is upset and that "the staff is so disrespectful". Per charge nurse, charge nurse came and spoke to patient and offered to change the staff, but patient states "No I don't want to change the staff, I just said they are disrespectful". When dya shift nurse entered the room and asked what can be done for the patient to make her happy, patient states "I didn't say I'm unhappy, you're putting words into my mouth". Discussed options with patient, and patient states she wants to talk to another supervisor [employer] "about the situation". Patient is crying and sitting in chair. Lacey made aware of situation.
--- NOTE | 2019-02-12 09:46 | NUR ---
AMA To Go Outside THEODORE DIAZ states they want to leave the floor Against Medical Advice (AMA) to go outside. Patient encouraged to stay on floor. Dr notified of patient's wishes. Patient advised of the risks and benefits of leaving AMA. Patient verbalized understanding and signed required AMA form. Patient educated she only has 30 minutes.
[2019-02-12] MEDS ORDERED: metroNIDAZOLE 500 MG TAB PO SCH (10:30)
[2019-02-12] MEDS: lamoTRIgine 25 MG TAB PO SCH ×2 (10:42→22:05)
[2019-02-12] MEDS: QUEtiapine FUMARATE 25 MG TAB PO SCH ×2 (10:43→22:05)
[2019-02-12] MEDS: PANTOPRAZOLE 40 MG TAB PO SCH ×2 (10:43→22:05)
[2019-02-12] MEDS ORDERED: POTASSIUM EFFERVESENT TAB 25 MEQ PO ONE ×3 (10:45→21:30)
[2019-02-12] MEDS ORDERED: SODIUM BICARBONATE 50ML VIAL 150 ML in D5W 5% 1,000 ML IV ONE ×2 (10:45→21:30)
[2019-02-12] MEDS: VANCOMYCIN HCL 125MG/5ML ORAL SOL PO SCH ×3 (12:10→22:05)
[2019-02-12] MEDS: SODIUM BICARBONATE 650 MG TAB PO SCH ×3 (12:22→22:04)
[2019-02-12] MEDS: ONDANSETRON HCL 4 MG/2 ML VIAL IV PRN ×2 (12:22→17:44)
[2019-02-12 12:34] LABS: % Iron Saturation 12.7 % (15-50)
[2019-02-12 12:36] VITALS: BP 95/49
[2019-02-12 16:58] VITALS: BP 93/60
--- NOTE | 2019-02-12 18:50 | NUR ---
Closing Note Patient lying in bed, shows no signs of distress at this time. Bed in lowest locked position, side rails up x2 and call light within reach.
[2019-02-12 21:59] VITALS: BP 106/59
[2019-02-12] MEDS: traZODone HCL 50 MG TAB PO SCH (22:05)
--- NOTE | 2019-02-12 23:50 | NUR ---
IV insertion IV access to right forearm obtained, via clean sterile technique by inserting 24 gauge catheter after first attempt. IV secured properly. No trauma to site. Patient tolerated procedure well.
--- NOTE | 2019-02-12 23:50 | NUR ---
IV removal IV to left hand DC'd with sterile technique, catheter fully intact. Pressure dressing applied to site. Patient tolerated procedure well.
[2019-02-13 04:53] LABS: BUN/Creatinine Ratio 6.7; Calcium 7.7 mg/dL (8.5-10.1); Potassium 3.8 mmol/L (3.5-5.1)
[2019-02-13 04:54] VITALS: BP 109/52
[2019-02-13] MEDS: VANCOMYCIN HCL 125MG/5ML ORAL SOL PO SCH ×2 (04:56→11:00)
[2019-02-13] MEDS: HYDROmorphone HCL 2 MG/ML VL IV PRN ×2 (05:34→11:00)
[2019-02-13] MEDS: SODIUM BICARBONATE 650 MG TAB PO SCH ×2 (06:21→11:53)
[2019-02-13] MEDS: SUCRALFATE 1 GM/10 ML ORAL SUSP PO SCH ×2 (06:45→11:41)
[2019-02-13 09:00] VITALS: BP 99/64
--- NOTE | 2019-02-13 09:45 | NUR ---
Dr. Mcpherson in to see patient as hospitalist. She states the patient can be discharged later today if she tolerates soft diet.
--- NOTE | 2019-02-13 10:11 | NUR ---
Patient signed AMA to go outside.
[2019-02-13] MEDS: PANTOPRAZOLE 40 MG TAB PO SCH (10:59)
[2019-02-13] MEDS: lamoTRIgine 25 MG TAB PO SCH (10:59)
[2019-02-13] MEDS: QUEtiapine FUMARATE 25 MG TAB PO SCH (10:59)
[2019-02-13] MEDS: ONDANSETRON HCL 4 MG/2 ML VIAL IV PRN (11:00)
[2019-02-13 13:00] VITALS: BP 103/53
[2019-02-13 13:34] VITALS: BP 99/64
--- NOTE | 2019-02-13 15:25 | NUR ---
Spoke with rep at [facility]. He states he will be here in 45 minutes.
--- NOTE | 2019-02-13 15:32 | NUR ---
Received referral to see pt who is a 23 yr old female. Pt is willing to answer questions regarding her discharge plans. Pt lives in [place], [address] [facility]. Her phone number is [phone]. Pt was visiting her mother here in [place] and became ill. Pt does not have any supplies so the nurse was to give her a couple until she can get to her pcp. Pt will be given a taxi ride to [place] as she has no transportation. Pt is an amputee. The taxi was authorized by [employer], Radhika Campos, of [employer].
--- NOTE | 2019-02-13 16:25 | NUR ---
Discharge instructions given as ordered. Encourage to follow up with PMD as instructed. All questions and concerns addressed. Patient verbalized understanding. Medication reconciliation form completed and copy given to patient. IV removed with catheter intact, pressure dressing applied. U. Patient taken to vehicle via wheelchair with all personal belongings, accompanied by staff and family member. No distress noted at time of departure. Patient was given a taxi voucher.
== END 2019-02-13 16:25 | disposition home or self-care (01) | DRG 241 ==
LOC: ER 19:35 → OVERFLOW 19:36 → WEST WING 02-11 01:56
PROVIDERS: ADMIT Nurse Practitioner; ATTEND Internal Medicine Nephrology
DX: K29.70 Gastritis, unspecified, without bleeding (principal); K85.90 Acute pancreatitis without necrosis or infection, unspecified; E87.2 Acidosis; A04.72 Enterocolitis due to Clostridium difficile, not specified as recurrent; N13.6 Pyonephrosis; E87.6 Hypokalemia; G89.4 Chronic pain syndrome; R31.0 Gross hematuria; N21.0 Calculus in bladder; F32.9 Major depressive disorder, single episode, unspecified; F41.9 Anxiety disorder, unspecified; N32.89 Other specified disorders of bladder; F12.90 Cannabis use, unspecified, uncomplicated; F17.210 Nicotine dependence, cigarettes, uncomplicated; Z80.9 Family history of malignant neoplasm, unspecified; Z81.8 Family history of other mental and behavioral disorders; Z87.442 Personal history of urinary calculi; Z93.3 Colostomy status; Z87.11 Personal history of peptic ulcer disease; Z98.1 Arthrodesis status
CPT/HCPCS: 36415; 74176; 80048; 80053; 80307; 81001; 81025; 82270; 83540; 83550; 83690; 85025; 87040; 87045; 87086; 87427; 87493; 96361; 96365; 96375; G0378; J0696; J2405; J7060

== ENCOUNTER 2019-12-07 08:27 | Inpatient (IN) | payer MEDICAID ==
[~2019-12-07] VITALS: Ht 149.9 cm; Wt 46.7 kg
[~2019-12-07 08:27] MED LIST: LAMO25CH17 PO; QUET50TA PO; TRAZ50TA2 PO
[2019-12-07 09:30] LABS: Urine Amorphous Crystal MOD /hpf (None Seen); Urine Bacteria MANY /hpf (None Seen); Urine Specific Gravity 1.015 (1.001-1.035); Urine WBC 146 /hpf (0 - 5)
[2019-12-07 09:31] LABS: Urine Blood Trace /uL (Negative)
[2019-12-07 09:41] LABS: Basophils # (auto) 0.1 10 ^3/uL (0-0.2); Basophils % (auto) 0.9 % (0.0-2.0); Eosinophils # (auto) 0.2 10 ^3/uL (0-0.8); Eosinophils % (auto) 2.4 % (0.0-7.0); Hemoglobin 12.8 g/dL (12.2-16.2); Lymphocytes # (auto) 1.5 10 ^3/uL (0.4-5.4); Lymphocytes % (auto) 17.7 % (10.0-50.0); Mean Corpuscular Hemoglobin 31.8 pg (28.0-32.0); Mean Corpuscular Hgb Conc. 32.8 g/dL (32.0-36.0); Mean Corpuscular Volume 96.9 fL (80.0-100.0); Monocytes # (auto) 0.4 10 ^3/uL (0-1.3); Monocytes % (auto) 4.7 % (0.0-12.0); Neutrophils # (auto) 6.5 10 ^3/uL (1.6-8.6); Neutrophils % (auto) 74.3 % (37.0-80.0); Nucleated Red Blood Cells % 0.1 %; Platelet Count (auto) 222 10^3/uL (140-450); Red Blood Cells 4.03 10^6/uL (4.0-5.20); Red Cell Distribution Width 13.4 % (11.8-14.3); White Blood Cell 8.7 10^3/uL (4.4-10.8)
[2019-12-07] MEDS ORDERED: SODIUM CHLORIDE 0.9% 1,000 ML IV ONE ×2 (09:45)
[2019-12-07] MEDS ORDERED: cefTRIAXone 1GM/50ML D5W 50 ML IV ONE (09:45)
[2019-12-07 09:57] LABS: Potassium 3.4 mmol/L (3.5-5.1)
[2019-12-07 10:03] LABS: Albumin 4.1 g/dL (3.4-5.0); Bilirubin, Total 0.5 mg/dL (0.2-1.0); Calcium 9.6 mg/dL (8.5-10.1); Total Protein 7.8 g/dL (6.4-8.2)
[2019-12-07] MEDS ORDERED: SODIUM CHLORIDE 0.9% 1,000 ML IV SCH (15:45)
[2019-12-07] MEDS ORDERED: TAMSULOSIN HYDROCHLORIDE 0.4 MG CAP PO ONE (15:45)
[2019-12-07] MEDS ORDERED: MORPHINE SULF INJ 2 MG/ML SYRINGE 1ML IV PRN (15:45)
[2019-12-07] MEDS ORDERED: ONDANSETRON HCL 4 MG/2 ML VIAL IV PRN (15:45)
[2019-12-07] MEDS ORDERED: ACETAMINOPHEN 500 MG TAB PO PRN (15:45)
[2019-12-07] MEDS ORDERED: NITROGLYCERIN 0.4 MG SL TAB SL PRN (15:45)
[2019-12-07] MEDS: MORPHINE SULF INJ 2 MG/ML SYRINGE 1ML IV PRN ×2 (16:15→19:57)
[2019-12-07 21:01] VITALS: BP 111/69
[2019-12-08] MEDS ORDERED: cefTRIAXone 1GM/50ML D5W 50 ML IV SCH (10:00)
[2019-12-08] MEDS ORDERED: TAMSULOSIN HYDROCHLORIDE 0.4 MG CAP PO SCH (18:00)
== END 2019-12-07 21:26 | disposition left against medical advice (07) | DRG 465 ==
LOC: ER 08:27 → TELE 08:28
PROVIDERS: ADMIT Internal Medicine; ATTEND Internal Medicine
DX: N20.0 Calculus of kidney (principal); F17.210 Nicotine dependence, cigarettes, uncomplicated; N39.0 Urinary tract infection, site not specified; F32.9 Major depressive disorder, single episode, unspecified; F41.9 Anxiety disorder, unspecified; Z80.9 Family history of malignant neoplasm, unspecified; Z81.8 Family history of other mental and behavioral disorders; Z87.442 Personal history of urinary calculi; Z93.2 Ileostomy status; Z93.3 Colostomy status; Z91.040 Latex allergy status; Q60.0 Renal agenesis, unilateral
CPT/HCPCS: 36415; 71045; 74176; 80053; 81001; 81025; 83690; 85025; 87086; 96361; 96374; 96375; G0378; J2405

== ENCOUNTER 2020-02-04 05:25 | Emergency (ER) | payer MEDICAID ==
[~2020-02-04] VITALS: Ht 149.9 cm; Wt 46.7 kg
[2020-02-04 07:45] LABS: Urine Bacteria NONE SEEN /hpf (None Seen); Urine Blood TRACE /uL (Negative); Urine WBC 1 /hpf (0 - 5)
[2020-02-04] MEDS ORDERED: SODIUM CHLORIDE 0.9% 500 ML IVB ONE (07:57)
[2020-02-04] MEDS ORDERED: SODIUM CHLORIDE 0.9% 1,000 ML IV ONE (07:57)
[2020-02-04] MEDS ORDERED: HYDROmorphone HCL 2 MG/ML VL IV ONE (08:00)
[2020-02-04] MEDS ORDERED: PROMETHAZINE HCL 25 MG/ML 1ML IV ONE (08:00)
[2020-02-04] MEDS ORDERED: MORPHINE SULF INJ 2 MG/ML SYRINGE 1ML IM ONE (09:00)
[2020-02-04] MEDS ORDERED: cefTRIAXone 1GM/50ML D5W 50 ML IV ONE (10:15)
[2020-02-04 10:20] LABS: Basophils # (auto) 0 10 ^3/uL (0-0.2); Basophils % (auto) 0.3 % (0.0-2.0); Eosinophils # (auto) 0.3 10 ^3/uL (0-0.8); Eosinophils % (auto) 3.1 % (0.0-7.0); Hemoglobin 12.7 g/dL (12.2-16.2); Lymphocytes # (auto) 1.7 10 ^3/uL (0.4-5.4); Mean Corpuscular Hemoglobin 31.4 pg (28.0-32.0); Mean Corpuscular Hgb Conc. 33.5 g/dL (32.0-36.0); Mean Corpuscular Volume 93.8 fL (80.0-100.0); Monocytes # (auto) 0.6 10 ^3/uL (0-1.3); Monocytes % (auto) 6.3 % (0.0-12.0); Neutrophils # (auto) 6.8 10 ^3/uL (1.6-8.6); Neutrophils % (auto) 72.3 % (37.0-80.0); Platelet Count (auto) 302 10^3/uL (140-450); Red Blood Cells 4.06 10^6/uL (4.0-5.20); Red Cell Distribution Width 14.1 % (11.8-14.3); White Blood Cell 9.3 10^3/uL (4.4-10.8)
[2020-02-04 10:40] LABS: Albumin 3.6 g/dL (3.4-5.0); Calcium 8.8 mg/dL (8.5-10.1)
[2020-02-04 10:44] LABS: Bilirubin, Total 0.3 mg/dL (0.2-1.0); Total Protein 8.4 g/dL (6.4-8.2)
[2020-02-04 11:11] LABS: Potassium 2.9 mmol/L (3.5-5.1)
[2020-02-04 11:47] VITALS: BP 134/77
[2020-02-04] MEDS ORDERED: POTASSIUM EFFERVESENT TAB 25 MEQ PO ONE (12:15)
[2020-02-04] MEDS ORDERED: cefTRIAXone SOD 1,000 MG VL IM ONE (13:30)
[2020-02-04] MEDS ORDERED: LIDOCAINE 1% HCL (LOCAL ANESTH.) INJ 20ML MDV IJ ONE (13:30)
== END 2020-02-04 14:13 | disposition home or self-care (01) ==
LOC: ER 05:25
DX: G89.4 Chronic pain syndrome (principal); N39.0 Urinary tract infection, site not specified; E87.6 Hypokalemia; R10.13 Epigastric pain; F17.210 Nicotine dependence, cigarettes, uncomplicated; Q73.0 Congenital absence of unspecified limb(s); Z98.1 Arthrodesis status; Z87.442 Personal history of urinary calculi; Z87.440 Personal history of urinary (tract) infections; Z79.899 Other long term (current) drug therapy; Z91.040 Latex allergy status
CPT/HCPCS: 36415; 74176; 80053; 81001; 82962; 83690; 83735; 84702; 85025; 96361; 96372; 96374; 96375; 99285; J0696; J1170; J2270; J2550; J7030

== ENCOUNTER 2021-05-23 07:08 | Inpatient (IN) | payer MEDICAID ==
[~2021-05-23] VITALS: Ht 149.9 cm; Wt 42.5 kg
[2021-05-23] MEDS ORDERED: MORPHINE SULFATE INJECTION 2 MG/ML SYRG IM ONE (09:15)
[2021-05-23] MEDS ORDERED: ONDANSETRON ODT 4 MG TAB PO ONE (09:15)
[2021-05-23 10:35] LABS: Basophils # (auto) 0 10 ^3/uL (0-0.2); Basophils % (auto) 0.5 % (0.0-2.0); Eosinophils # (auto) 0.1 10 ^3/uL (0-0.8); Eosinophils % (auto) 1.2 % (0.0-7.0); Hematocrit 36.3 % (36.0-46.0); Hemoglobin 11.8 g/dL (12.2-16.2); Lymphocytes # (auto) 1.8 10 ^3/uL (0.4-5.4); Lymphocytes % (auto) 22.3 % (10.0-50.0); Mean Corpuscular Hemoglobin 31.5 pg (28.0-32.0); Mean Corpuscular Hgb Conc. 32.5 g/dL (32.0-36.0); Mean Corpuscular Volume 97.1 fL (80.0-100.0); Monocytes # (auto) 0.3 10 ^3/uL (0-1.3); Monocytes % (auto) 4.4 % (0.0-12.0); Neutrophils # (auto) 5.7 10 ^3/uL (1.6-8.6); Neutrophils % (auto) 71.6 % (37.0-80.0); Nucleated Red Blood Cells % 0.1 %; Red Blood Cells 3.74 10^6/uL (4.0-5.20); Red Cell Distribution Width 15.6 % (11.8-14.3); White Blood Cell 7.9 10^3/uL (4.4-10.8)
[2021-05-23 10:47] LABS: Urine Bacteria MANY /hpf (None Seen); Urine Blood TRACE /uL (Negative); Urine Mucus FEW (None Seen); Urine WBC 151 /hpf (0 - 5); Urine WBC Clumps PRESENT /hpf (None Seen)
[2021-05-23 10:57] LABS: Potassium 3.5 mmol/L (3.5-5.1)
[2021-05-23] MEDS ORDERED: KETOROLAC TROMETH 60MG/2ML VIAL IM ONE (11:00)
[2021-05-23 11:04] LABS: Albumin 3.8 g/dL (3.4-5.0); BUN/Creatinine Ratio 5.9; Bilirubin, Total 0.3 mg/dL (0.2-1.0); Calcium 7.8 mg/dL (8.5-10.1); Total Protein 7.2 g/dL (6.4-8.2)
[2021-05-23] MEDS ORDERED: cefTRIAXone SOD 1,000 MG VL IM ONE (11:15)
[2021-05-23] MEDS ORDERED: PIPERACILLIN-TAZOB 3.375GM 100 ML IV ONE (12:30)
[2021-05-23] MEDS ORDERED: SODIUM CHLORIDE 0.9% 1,000 ML IV ONE (12:30)
[2021-05-23] MEDS ORDERED: ONDANSETRON HCL 4 MG/2 ML VIAL IV ONE (13:45)
[2021-05-23] MEDS ORDERED: HYDROmorphone HCL 2 MG/ML VL IV ONE (13:45)
[2021-05-23] MEDS ORDERED: TEMAZEPAM 15 MG CAP PO PRN (14:00)
[2021-05-23] MEDS ORDERED: DOCUSATE SOD 100 MG CAP PO PRN (14:00)
[2021-05-23] MEDS ORDERED: NITROGLYCERIN 0.4 MG SL TAB SL PRN (14:00)
[2021-05-23] MEDS ORDERED: ACETAMINOPHEN 325 MG TAB PO PRN (14:00)
[2021-05-23] MEDS ORDERED: MORPHINE SULFATE INJECTION 2 MG/ML SYRG IV PRN (14:00)
[2021-05-23] MEDS ORDERED: HYDROcodone-ACET 5/325MG TAB PO PRN (14:00)
[2021-05-23] MEDS: SODIUM CHLORIDE 0.9% 1,000 ML IV SCH (15:58)
[2021-05-23] MEDS: ONDANSETRON HCL 4 MG/2 ML VIAL IV PRN (17:06)
[2021-05-23] MEDS: PIPERACILLIN-TAZOB 3.375GM 100 ML IV SCH (19:07)
[2021-05-23] MEDS: MORPHINE SULFATE 4 MG/ML SYR/VIAL IV PRN ×2 (19:28→23:51)
[2021-05-24] MEDS: ASCORBIC ACID 500 MG TAB PO SCH ×3 (00:21→21:26)
[2021-05-24] MEDS: SODIUM CHLORIDE 0.9% 1,000 ML IV SCH (06:40)
[2021-05-24] MEDS: MORPHINE SULFATE 4 MG/ML SYR/VIAL IV PRN ×4 (06:52→22:48)
[2021-05-24 07:33] LABS: Basophils # (auto) 0 10 ^3/uL (0-0.2); Basophils % (auto) 0.5 % (0.0-2.0); Eosinophils # (auto) 0.2 10 ^3/uL (0-0.8); Eosinophils % (auto) 2.8 % (0.0-7.0); Hematocrit 34.7 % (36.0-46.0); Hemoglobin 11.2 g/dL (12.2-16.2); Lymphocytes # (auto) 2.2 10 ^3/uL (0.4-5.4); Lymphocytes % (auto) 25.9 % (10.0-50.0); Mean Corpuscular Hgb Conc. 32.4 g/dL (32.0-36.0); Mean Corpuscular Volume 95.6 fL (80.0-100.0); Monocytes # (auto) 0.5 10 ^3/uL (0-1.3); Monocytes % (auto) 5.7 % (0.0-12.0); Neutrophils # (auto) 5.5 10 ^3/uL (1.6-8.6); Neutrophils % (auto) 65.1 % (37.0-80.0); Nucleated Red Blood Cells % 0.2 %; Red Blood Cells 3.63 10^6/uL (4.0-5.20); Red Cell Distribution Width 15.2 % (11.8-14.3); White Blood Cell 8.5 10^3/uL (4.4-10.8)
[2021-05-24 07:52] LABS: Albumin 3.3 g/dL (3.4-5.0)
[2021-05-24 07:56] LABS: BUN/Creatinine Ratio 6.1; Bilirubin, Total 0.2 mg/dL (0.2-1.0); Total Protein 6.3 g/dL (6.4-8.2)
[2021-05-24 08:00] VITALS: BP 110/79
[2021-05-24] MEDS: PIPERACILLIN-TAZOB 3.375GM 100 ML IV SCH ×4 (08:04→18:12)
[2021-05-24] MEDS: MULTIPLE VITAMIN TAB PO SCH (10:15)
[2021-05-24] MEDS: ZINC SULFATE 220mg CAP or TAB PO SCH (10:15)
[2021-05-24 13:00] VITALS: BP 115/74
[2021-05-24] MEDS: ALPRAZolam 0.25 MG TAB PO PRN (13:53)
[2021-05-24 17:00] VITALS: BP 101/60
[2021-05-24] MEDS ORDERED: BACLOFEN 10 MG TAB PO PRN (17:45)
[2021-05-24 22:00] VITALS: BP 110/59
[2021-05-25] MEDS: PIPERACILLIN-TAZOB 3.375GM 100 ML IV SCH ×3 (00:18→12:44)
[2021-05-25] MEDS: SODIUM CHLORIDE 0.9% 1,000 ML IV SCH ×2 (00:18→16:00)
[2021-05-25] MEDS: OXYCODONE W/ ACETAMINOPHEN 5/325MG TABLET PO PRN ×3 (00:36→16:39)
[2021-05-25] MEDS: MORPHINE SULFATE 4 MG/ML SYR/VIAL IV PRN (03:24)
[2021-05-25 05:00] VITALS: BP 118/55
[2021-05-25] MEDS: ONDANSETRON HCL 4 MG/2 ML VIAL IV PRN ×2 (05:20→12:44)
[2021-05-25 09:00] VITALS: BP 91/54
[2021-05-25] MEDS: ALPRAZolam 0.25 MG TAB PO PRN (09:11)
[2021-05-25] MEDS: ASCORBIC ACID 500 MG TAB PO SCH (10:00)
[2021-05-25] MEDS: MULTIPLE VITAMIN TAB PO SCH (10:00)
[2021-05-25] MEDS: ZINC SULFATE 220mg CAP or TAB PO SCH (10:00)
[2021-05-25 13:00] VITALS: BP 100/55
[2021-05-25 17:00] VITALS: BP 102/52
== END 2021-05-25 20:05 | disposition home or self-care (01) | DRG 463 ==
LOC: EDBD 07:08 → ER 07:08 → TELE 13:50 → TELE-WESTW 23:16
PROVIDERS: ADMIT Internal Medicine; ATTEND Internal Medicine
DX: N10 Acute pyelonephritis (principal); R53.2 Functional quadriplegia; Z89.612 Acquired absence of left leg above knee; E86.0 Dehydration; F17.210 Nicotine dependence, cigarettes, uncomplicated; F32.A Depression, unspecified; N20.0 Calculus of kidney; F41.9 Anxiety disorder, unspecified; G89.4 Chronic pain syndrome; Z81.8 Family history of other mental and behavioral disorders; Z87.442 Personal history of urinary calculi; Z79.899 Other long term (current) drug therapy; Z98.1 Arthrodesis status; Z91.040 Latex allergy status; Z91.19 Patient's noncompliance with other medical treatment and regimen; Z87.440 Personal history of urinary (tract) infections
CPT/HCPCS: 36415; 72070; 72100; 74176; 80053; 81001; 85025; 87086; 87426; 96365; 96372; G0378; J0696; J1885; J2405; J2543; Q0162

== ENCOUNTER 2022-03-08 03:30 | Inpatient (IN) | payer MEDICAID ==
[~2022-03-08] VITALS: Ht 160 cm; Wt 43.2 kg
[2022-03-08] MEDS ORDERED: FAMOTIDINE (10MG/ML) 2ML VL IV ONE (04:15)
[2022-03-08] MEDS ORDERED: ALUM & MAG HYDROX-SIMETH LIQ(MAALOX) 30 ML PO ONE (04:15)
[2022-03-08] MEDS ORDERED: ONDANSETRON HCL 4 MG/2 ML VIAL IV ONE ×2 (04:15→07:45)
[2022-03-08] MEDS ORDERED: IOHEXOL 350 MG/ML 100ML IJ ONE (04:15)
[2022-03-08] MEDS ORDERED: PROCHLORPERAZINE EDISYLATE 5 MG/ML 2ML VIAL IV ONE ×3 (04:15→11:45)
[2022-03-08] MEDS ORDERED: LIDOCAINE VISCOUS 2% 15ML UD PO ONE (04:15)
[2022-03-08 04:55] LABS: Eosinophils # (auto) 0 10 ^3/uL (0-0.8); Eosinophils % (auto) 0.2 % (0.0-7.0); Neutrophils # (auto) 7.7 10 ^3/uL (1.6-8.6); Red Cell Distribution Width 14.6 % (11.8-14.3); White Blood Cell 9.4 10^3/uL (4.4-10.8)
[2022-03-08 04:58] LABS: Basophils # (auto) 0 10 ^3/uL (0-0.2); Basophils % (auto) 0.5 % (0.0-2.0); Hematocrit 34.8 % (36.0-46.0); Hemoglobin 11.6 g/dL (12.2-16.2); Lymphocytes # (auto) 1.4 10 ^3/uL (0.4-5.4); Lymphocytes % (auto) 14.5 % (10.0-50.0); Mean Corpuscular Hemoglobin 30.7 pg (28.0-32.0); Mean Corpuscular Hgb Conc. 33.5 g/dL (32.0-36.0); Mean Corpuscular Volume 91.7 fL (80.0-100.0); Monocytes # (auto) 0.3 10 ^3/uL (0-1.3); Monocytes % (auto) 3.6 % (0.0-12.0); Neutrophils % (auto) 81.2 % (37.0-80.0); Red Blood Cells 3.79 10^6/uL (4.0-5.20)
[2022-03-08 05:12] LABS: Albumin 3.1 g/dL (3.4-5.0); Calcium 8.2 mg/dL (8.5-10.1); Potassium 3.2 mmol/L (3.5-5.1)
[2022-03-08 05:14] LABS: BUN/Creatinine Ratio 10.3
[2022-03-08 05:17] LABS: Bilirubin, Total 0.3 mg/dL (0.2-1.0); Total Protein 7.9 g/dL (6.4-8.2)
[2022-03-08] MEDS ORDERED: MORPHINE SULFATE INJ 2 MG/ml SYRG IV ONE ×2 (07:45→11:45)
[2022-03-08 07:59] LABS: Urine Bacteria NONE SEEN /hpf (None Seen); Urine Blood Negative /uL (Negative); Urine Mucus FEW (None Seen); Urine Specific Gravity 1.037 (1.001-1.035); Urine WBC 147 /hpf (0 - 5)
[2022-03-08] MEDS ORDERED: cefTRIAXone 1GM/50ML D5W 50 ML IV ONE (09:00)
[2022-03-08] MEDS ORDERED: HYDROmorphone HCL 2 MG/ML VL/or syr IV ONE (15:30)
[2022-03-08] MEDS ORDERED: POTASSIUM EFFERVESENT TAB 25 MEQ PO ONE (15:45)
[2022-03-08] MEDS ORDERED: GASTROGRAFIN 120 ML SOL ONE (16:18)
[2022-03-08] MEDS ORDERED: HYDROmorphone HCL 2 MG/ML VL/or syr IV PRN (18:45)
[2022-03-08] MEDS ORDERED: PROCHLORPERAZINE EDISYLATE 5 MG/ML 2ML VIAL IV PRN (18:45)
[2022-03-08] MEDS: PROCHLORPERAZINE EDISYLATE 5 MG/ML 2ML VIAL IV PRN (20:39)
[2022-03-08] MEDS: HYDROmorphone HCL 2 MG/ML VL/or syr IV PRN (20:40)
[2022-03-08 21:02] LABS: Creatinine, Urine 131 mg/dL (30.0-125.0); Sodium Urine 24 mmol/L (40-220)
[2022-03-09] MEDS: SODIUM CHLORIDE 0.9% 1,000 ML IV SCH ×3 (00:05→12:25)
[2022-03-09] MEDS: HYDROmorphone HCL 2 MG/ML VL/or syr IV PRN ×3 (01:41→11:18)
[2022-03-09 05:03] LABS: Basophils # (auto) 0.1 10 ^3/uL (0-0.2); Basophils % (auto) 0.5 % (0.0-2.0); Eosinophils # (auto) 0 10 ^3/uL (0-0.8); Eosinophils % (auto) 0.4 % (0.0-7.0); Hematocrit 37.4 % (36.0-46.0); Hemoglobin 12.3 g/dL (12.2-16.2); Lymphocytes # (auto) 3.1 10 ^3/uL (0.4-5.4); Lymphocytes % (auto) 25.5 % (10.0-50.0); Mean Corpuscular Hemoglobin 30.9 pg (28.0-32.0); Mean Corpuscular Volume 93.6 fL (80.0-100.0); Monocytes # (auto) 0.8 10 ^3/uL (0-1.3); Monocytes % (auto) 6.3 % (0.0-12.0); Neutrophils # (auto) 8.3 10 ^3/uL (1.6-8.6); Neutrophils % (auto) 67.3 % (37.0-80.0); Nucleated Red Blood Cells % 0.1 %; Red Cell Distribution Width 14.4 % (11.8-14.3); White Blood Cell 12.3 10^3/uL (4.4-10.8)
[2022-03-09 05:22] LABS: BUN/Creatinine Ratio 13.6
[2022-03-09 05:23] LABS: Albumin 3.5 g/dL (3.4-5.0); Bilirubin, Total 0.7 mg/dL (0.2-1.0); Calcium 8.9 mg/dL (8.5-10.1); Total Protein 8.9 g/dL (6.4-8.2)
[2022-03-09] MEDS ORDERED: ENOXAPARIN SOD 40 MG/0.4 ML SYRINGE SC SCH (10:00)
[2022-03-09] MEDS ORDERED: PANTOPRAZOLE 40 MG/10 ML VIAL INJ IV SCH (10:00)
[2022-03-09] MEDS: PROCHLORPERAZINE EDISYLATE 5 MG/ML 2ML VIAL IV PRN (11:13)
[2022-03-09 14:00] VITALS: BP 131/34
== END 2022-03-09 14:42 | disposition home or self-care (01) | DRG 247 ==
LOC: ER 03:30 → EDBD 03:30 → OVERFLOW 19:47
PROVIDERS: ADMIT Nurse Practitioner Family; ATTEND Student in an Organized Health Care Education/Training Program
DX: K56.600 Partial intestinal obstruction, unspecified as to cause (principal); N17.9 Acute kidney failure, unspecified; D69.6 Thrombocytopenia, unspecified; Q60.0 Renal agenesis, unilateral; E44.1 Mild protein-calorie malnutrition; E87.1 Hypo-osmolality and hyponatremia; N39.0 Urinary tract infection, site not specified; F17.210 Nicotine dependence, cigarettes, uncomplicated; G89.29 Other chronic pain; Z16.24 Resistance to multiple antibiotics; F32.A Depression, unspecified; F41.9 Anxiety disorder, unspecified; E87.6 Hypokalemia; E86.0 Dehydration; Z68.1 Body mass index [BMI] 19.9 or less, adult; Z91.040 Latex allergy status; Z81.8 Family history of other mental and behavioral disorders; Z87.440 Personal history of urinary (tract) infections; Z87.442 Personal history of urinary calculi; Z93.2 Ileostomy status; Z93.3 Colostomy status; Z79.899 Other long term (current) drug therapy
CPT/HCPCS: 36415; 71045; 74018; 74177; 74250; 80053; 81001; 81025; 82570; 83690; 84300; 84702; 85025; 87086; 87426; 93005; 96374; 96375; C9113; G0378; J0696; J2405; J3490

== ENCOUNTER 2022-06-20 04:15 | Inpatient (IN) | payer MEDICAID ==
[~2022-06-20] VITALS: Ht 152.4 cm; Wt 52.8 kg
[2022-06-20 05:21] LABS: Basophils # (auto) 0.2 10 ^3/uL (0-0.2); Eosinophils # (auto) 0.2 10 ^3/uL (0-0.8); Eosinophils % (auto) 2.4 % (0.0-7.0); Hematocrit 37.5 % (36.0-46.0); Hemoglobin 11.8 g/dL (12.2-16.2); Lymphocytes # (auto) 0.4 10 ^3/uL (0.4-5.4); Lymphocytes % (auto) 4.8 % (10.0-50.0); Mean Corpuscular Hemoglobin 30.4 pg (28.0-32.0); Mean Corpuscular Hgb Conc. 31.5 g/dL (32.0-36.0); Mean Corpuscular Volume 96.5 fL (80.0-100.0); Monocytes # (auto) 0.3 10 ^3/uL (0-1.3); Monocytes % (auto) 3.7 % (0.0-12.0); Neutrophils # (auto) 8.1 10 ^3/uL (1.6-8.6); Neutrophils % (auto) 87.1 % (37.0-80.0); Red Blood Cells 3.88 10^6/uL (4.0-5.20); Red Cell Distribution Width 15.4 % (11.8-14.3); White Blood Cell 9.3 10^3/uL (4.4-10.8)
[2022-06-20 05:34] LABS: Albumin 3.6 g/dL (3.4-5.0); Calcium 8.7 mg/dL (8.5-10.1); Potassium 4.3 mmol/L (3.5-5.1)
[2022-06-20 05:37] LABS: Bilirubin, Total 0.2 mg/dL (0.2-1.0)
[2022-06-20] MEDS ORDERED: HYDROcodone-ACET 5/325MG TAB PO PRN (06:45)
[2022-06-20] MEDS ORDERED: TEMAZEPAM 15 MG CAP PO PRN (06:45)
[2022-06-20] MEDS ORDERED: HYDROmorphone HCL 2 MG/ML VL/or syr IV ONE (06:45)
[2022-06-20] MEDS ORDERED: ACETAMINOPHEN 325 MG TAB PO PRN (06:45)
[2022-06-20] MEDS ORDERED: DOCUSATE SOD 100 MG CAP PO PRN (06:45)
[2022-06-20] MEDS ORDERED: SODIUM CHLORIDE 0.9% 1,000 ML IV ONE (06:45)
[2022-06-20] MEDS ORDERED: NITROGLYCERIN 0.4 MG SL TAB SL PRN (06:45)
[2022-06-20] MEDS ORDERED: MORPHINE SULFATE INJ 2 MG/ml SYRG IV PRN (06:45)
[2022-06-20] MEDS ORDERED: VANCOMYCIN 1GM/250ML 250 ML IV ONE (06:45)
[2022-06-20] MEDS: ONDANSETRON HCL 4 MG/2 ML VIAL IV ONE ×2 (08:04→08:27)
[2022-06-20] MEDS: MORPHINE SULFATE INJ 2 MG/ml SYRG IV PRN ×5 (08:05→21:47)
[2022-06-20 09:01] LABS: Urine Bacteria FEW /hpf (None Seen); Urine Blood Negative /uL (Negative); Urine Mucus FEW (None Seen); Urine Specific Gravity 1.009 (1.001-1.035); Urine WBC 30 /hpf (0 - 5)
[2022-06-20] MEDS ORDERED: PROMETHAZINE HCL 25 MG/ML 1ML IV ONE (09:30)
[2022-06-20] MEDS: ENOXAPARIN SOD 30 MG/0.3 ML SYRINGE SC SCH ×2 (09:32→09:40)
[2022-06-20] MEDS ORDERED: PROCHLORPERAZINE EDISYLATE 5 MG/ML 2ML VIAL IV ONE (14:00)
[2022-06-20] MEDS: SODIUM CHLORIDE 0.9% 1,000 ML IV SCH ×3 (14:36→23:57)
[2022-06-20] MEDS ORDERED: VANCOMYCIN PER PHARMACY 0 MG IV SCH (15:00)
[2022-06-20] MEDS ORDERED: ALPRAZolam 0.5 MG TAB PO PRN (18:45)
[2022-06-20] MEDS: HYDROcodone-ACET 10/325MG TAB PO PRN (19:40)
[2022-06-20] MEDS: ONDANSETRON HCL 4 MG/2 ML VIAL IV PRN (20:41)
[2022-06-20] MEDS ORDERED: VANCOMYCIN 500 MG in D5W 5% 100 ML IV SCH (22:00)
[2022-06-21] MEDS: VANCOMYCIN 500 MG in D5W 5% 100 ML IV SCH ×3 (00:12→23:34)
[2022-06-21] MEDS: ONDANSETRON HCL 4 MG/2 ML VIAL IV PRN ×4 (02:07→23:33)
[2022-06-21] MEDS: MORPHINE SULFATE INJ 2 MG/ml SYRG IV PRN ×6 (02:07→23:33)
[2022-06-21] MEDS: HYDROcodone-ACET 10/325MG TAB PO PRN (03:27)
[2022-06-21 05:00] VITALS: BP 114/67
[2022-06-21 06:11] LABS: Basophils # (auto) 0.1 10 ^3/uL (0-0.2); Basophils % (auto) 0.7 % (0.0-2.0); Eosinophils # (auto) 0.1 10 ^3/uL (0-0.8); Eosinophils % (auto) 1.1 % (0.0-7.0); Hemoglobin 11.4 g/dL (12.2-16.2); Lymphocytes # (auto) 3.8 10 ^3/uL (0.4-5.4); Lymphocytes % (auto) 29.5 % (10.0-50.0); Mean Corpuscular Hemoglobin 30.2 pg (28.0-32.0); Mean Corpuscular Hgb Conc. 31.5 g/dL (32.0-36.0); Mean Corpuscular Volume 95.9 fL (80.0-100.0); Monocytes # (auto) 0.7 10 ^3/uL (0-1.3); Monocytes % (auto) 5.8 % (0.0-12.0); Neutrophils # (auto) 8.1 10 ^3/uL (1.6-8.6); Neutrophils % (auto) 62.9 % (37.0-80.0); Nucleated Red Blood Cells % 0.1 %; Red Blood Cells 3.76 10^6/uL (4.0-5.20); Red Cell Distribution Width 14.8 % (11.8-14.3); White Blood Cell 12.9 10^3/uL (4.4-10.8)
[2022-06-21 06:32] LABS: Albumin 3.7 g/dL (3.4-5.0); Calcium 8.4 mg/dL (8.5-10.1); Potassium 3.9 mmol/L (3.5-5.1)
[2022-06-21 06:37] LABS: BUN/Creatinine Ratio 9.2; Bilirubin, Total 0.5 mg/dL (0.2-1.0); Total Protein 7.4 g/dL (6.4-8.2)
[2022-06-21] MEDS: SODIUM CHLORIDE 0.9% 1,000 ML IV SCH ×2 (07:45→16:05)
[2022-06-21 09:19] VITALS: BP 111/66
[2022-06-21] MEDS: ENOXAPARIN SOD 30 MG/0.3 ML SYRINGE SC SCH (10:00)
[2022-06-21] MEDS: PANTOPRAZOLE 40 MG TAB PO SCH (10:04)
[2022-06-21] MEDS ORDERED: LORazepam 2MG/ML-1ML VIAL IV ONE (12:15)
[2022-06-21] MEDS ORDERED: LORazepam 0.5 MG TAB PO PRN (12:15)
[2022-06-21 12:53] VITALS: BP 127/66
[2022-06-21 16:46] VITALS: BP 105/52
[2022-06-21 18:41] LABS: Urine Bacteria FEW /hpf (None Seen); Urine Blood Negative /uL (Negative); Urine Mucus FEW (None Seen); Urine Specific Gravity 1.007 (1.001-1.035); Urine WBC 32 /hpf (0 - 5)
[2022-06-21 22:00] VITALS: BP 113/71
[2022-06-22] MEDS: SODIUM CHLORIDE 0.9% 1,000 ML IV SCH ×3 (00:25→17:05)
[2022-06-22] MEDS: ONDANSETRON HCL 4 MG/2 ML VIAL IV PRN ×5 (03:17→21:27)
[2022-06-22] MEDS: MORPHINE SULFATE INJ 2 MG/ml SYRG IV PRN ×5 (03:18→21:27)
[2022-06-22 05:00] VITALS: BP 111/59
[2022-06-22 08:00] VITALS: BP 98/51
[2022-06-22] MEDS ORDERED: diphenhdrAMINE HCL 50 MG/1 ML VL IV PRN (09:15)
[2022-06-22] MEDS: ENOXAPARIN SOD 30 MG/0.3 ML SYRINGE SC SCH (09:21)
[2022-06-22] MEDS: PANTOPRAZOLE 40 MG TAB PO SCH (09:38)
[2022-06-22] MEDS: diphenhdrAMINE HCL 50 MG/1 ML VL IV PRN (09:39)
[2022-06-22] MEDS: VANCOMYCIN 500 MG in D5W 5% 100 ML IV SCH ×2 (11:42→23:06)
[2022-06-22 20:00] VITALS: BP 108/87
[2022-06-22 22:00] VITALS: BP 108/87
[2022-06-23] MEDS: SODIUM CHLORIDE 0.9% 1,000 ML IV SCH ×3 (01:25→18:05)
[2022-06-23] MEDS: ONDANSETRON HCL 4 MG/2 ML VIAL IV PRN ×6 (01:42→22:13)
[2022-06-23] MEDS: MORPHINE SULFATE INJ 2 MG/ml SYRG IV PRN ×6 (01:47→22:14)
[2022-06-23 05:00] VITALS: BP 102/55
[2022-06-23] MEDS: diphenhdrAMINE HCL 50 MG/1 ML VL IV PRN ×4 (05:04→23:18)
[2022-06-23 08:00] VITALS: BP 106/55
[2022-06-23] MEDS: ENOXAPARIN SOD 30 MG/0.3 ML SYRINGE SC SCH (09:20)
[2022-06-23] MEDS: PANTOPRAZOLE 40 MG TAB PO SCH (09:21)
[2022-06-23 12:00] VITALS: BP 107/66
[2022-06-23 16:00] VITALS: BP 94/62
[2022-06-23] MEDS: VANCOMYCIN 500MG RECTAL ENEMA IN 100ML/NS PR SCH ×2 (18:00→22:00)
[2022-06-23 19:45] LABS: Urine Bacteria FEW /hpf (None Seen); Urine Blood Negative /uL (Negative); Urine Budding Yeast OCCASIONAL /hpf (None Seen); Urine Specific Gravity 1.009 (1.001-1.035); Urine WBC 45 /hpf (0 - 5)
[2022-06-23 20:00] VITALS: BP 105/56
[2022-06-23 22:00] VITALS: BP 105/56
[2022-06-24] MEDS: ONDANSETRON HCL 4 MG/2 ML VIAL IV PRN ×2 (02:17→06:15)
[2022-06-24] MEDS: MORPHINE SULFATE INJ 2 MG/ml SYRG IV PRN ×3 (02:18→10:55)
[2022-06-24] MEDS: SODIUM CHLORIDE 0.9% 1,000 ML IV SCH ×2 (02:25→09:56)
[2022-06-24 05:00] VITALS: BP 93/49
[2022-06-24] MEDS: VANCOMYCIN 500MG RECTAL ENEMA IN 100ML/NS PR SCH ×2 (05:06→09:56)
[2022-06-24] MEDS: diphenhdrAMINE HCL 50 MG/1 ML VL IV PRN (05:09)
[2022-06-24 08:00] VITALS: BP 95/56
[2022-06-24] MEDS ORDERED: diphenhdrAMINE HCL 50 MG/1 ML VL IV PRN (08:15)
[2022-06-24] MEDS: ENOXAPARIN SOD 30 MG/0.3 ML SYRINGE SC SCH (10:00)
[2022-06-24] MEDS: PANTOPRAZOLE 40 MG TAB PO SCH (10:05)
[2022-06-24 10:55] VITALS: BP 95/56
== END 2022-06-24 10:40 | disposition left against medical advice (07) | DRG 463 ==
LOC: ER 04:15 → EDBD 04:15 → TELE 06:45 → TELE-EAST 22:06
PROVIDERS: ADMIT Internal Medicine; ATTEND Nurse Practitioner
PROC: 05HC33Z Insertion of Infusion Device into Left Basilic Vein, Percutaneous Approach (ICD-10-PCS; principal; 2022-06-21)
PROC: B54NZZA Ultrasonography of Left Upper Extremity Veins, Guidance (ICD-10-PCS; 2022-06-21)
DX: N12 Tubulo-interstitial nephritis, not specified as acute or chronic (principal); Z89.612 Acquired absence of left leg above knee; F32.A Depression, unspecified; F41.9 Anxiety disorder, unspecified; G89.29 Other chronic pain; Z20.822 Contact with and (suspected) exposure to COVID-19; R11.2 Nausea with vomiting, unspecified; Z53.29 Procedure and treatment not carried out because of patient's decision for other reasons; Z91.040 Latex allergy status; Z93.2 Ileostomy status; Z81.8 Family history of other mental and behavioral disorders; Z87.442 Personal history of urinary calculi
CPT/HCPCS: 36415; 74176; 80053; 80202; 81001; 83690; 85025; 87086; 87426; 96361; 96365; 96366; 96375; 96376; G0378; J2405; J3370; J7060